=== PATIENT | male | born 1975 | race Caucasian/White ===

== ENCOUNTER 2021-08-08 15:47 | Emergency (ER) | payer OTHER, SELFPAY ==
[2021-08-08 16:54] VITALS: BP 136/103; PULSE 114; RESP 18; TEMP 36.8; O2SAT 99
== END 2021-08-08 17:52 | disposition left against medical advice (07) ==
LOC: ANHED 17:57
PROVIDERS: PCP Internal Medicine
DX: Z53.21 Procedure and treatment not carried out due to patient leaving prior to being seen by health care provider (principal)
CPT/HCPCS: 99199

== ENCOUNTER 2025-01-31 10:56 | Emergency (ER) | payer OTHER, SELFPAY ==
[2025-01-31 11:13] VITALS: BP 163/107; PULSE 84; RESP 16; TEMP 36.7; O2SAT 99
--- NOTE | 2025-01-31 11:36 | ED_ITS ---
HPI - General Adult General Chief complaint: Recheck/Abnormal Lab/Rx Stated complaint: WANTS MEDICINE REFILL Time Seen by Provider: 01/31/25 11:32 Source: patient and RN notes reviewed Mode of arrival: ambulatory Limitations: no limitations History of Present Illness HPI narrative: Patient presents today requesting refill on his atorvastatin, losartan, carvedilol, and amlodipine. He has been out for the last several days. He has tried to schedule appointment with a new PCP in the have canceled on him 3 times. Related Data Home Medications ?Medication ?Instructions ?Recorded ?Confirmed ?Last Taken ?Type amlodipine 10 mg tablet mg 01/31/25 Unknown History atorvastatin 20 mg tablet mg 01/31/25 Unknown History carvedilol 12.5 mg tablet mg 01/31/25 Unknown History losartan 100 mg tablet mg 01/31/25 Unknown History Allergies Allergy/AdvReac Type Severity Reaction Status Date / Time No Known Allergies Allergy Verified 01/31/25 11:23 [facility], [facility] Past Medical History Medical History (Updated 01/31/25 @ 11:42 by Zenia Fernandez, [facility], ) High cholesterol Hypertension Comments At time of signature, I have reviewed and agree with nursing past medical, surgical, social and family history unless otherwise noted. Please see nursing chart for further information. There is no relevant family history pertinent to the presenting complaint Exam Narrative: GENERAL: Well-appearing, well-nourished, and in no acute distress. HEAD: Normocephalic, atraumatic. EYES: EOMI. No redness or drainage. Conjunctivae normal. ENT: Mucous membranes pink and moist. NECK: Normal AROM. CHEST: No respiratory distress. EXTREMITIES: Normal range of motion. No edema. SKIN: Warm, dry, no rash. Capillary refill normal. Normal skin turgor. NEURO: No focal deficits. Alert and oriented x3. Gait steady. PSYCH: Normal affect. No signs of depression or anxiety. Course Course Level of Care: Express Care Visit Vital Signs Vital signs: Vital Signs Temperature 98.1 F 01/31/25 11:13 Pulse Rate 84 01/31/25 11:13 Respiratory Rate 16 01/31/25 11:13 Blood Pressure 163/107 H 01/31/25 11:13 Pulse Oximetry 99 01/31/25 11:13 Temperature 98.1 F 01/31/25 11:13 Pulse Rate 84 01/31/25 11:13 Respiratory Rate 16 01/31/25 11:13 Blood Pressure 163/107 H 01/31/25 11:13 Pulse Oximetry 99 01/31/25 11:13 Reviewed Medical Decision Making MDM Narrative Medical decision making narrative: 49-year-old male patient with history of high blood pressure and cholesterol presents today requesting medication refill. States his work schedule only allo ws him to take off on Fridays and the PCP appointment he had scheduled has canceled on him 3 times. He would like names for other PCPs. Blood pressure is elevated today, but patient has not had his medications today. Differential Diagnosis Differential Diagnosis: Hypertension, high cholesterol, medication refill Vital Signs Vital Signs: Vital Signs Temperature 98.1 F 01/31/25 11:13 Pulse Rate 84 01/31/25 11:13 Respiratory Rate 16 01/31/25 11:13 Blood Pressure 163/107 H 01/31/25 11:13 Pulse Oximetry 99 01/31/25 11:13 Temperature 98.1 F 01/31/25 11:13 Pulse Rate 84 01/31/25 11:13 Respiratory Rate 16 01/31/25 11:13 Blood Pressure 163/107 H 01/31/25 11:13 Pulse Oximetry 99 01/31/25 11:13 Critical Care Time Critical Care Time Critical Care Time: No Discharge Plan Discharge Clinical Impression: Medication refill, Hypertension, High cholesterol Patient Disposition: Home Condition: Stable Additional Instructions: Prescriptions for your medications have been sent to your pharmacy. Please call the physician liaison phone number tomorrow with help to find a new PCP. The phone number is [phone]. Patient Language: Argentine Prescriptions: New atorvastatin [Lipitor] 20 mg tablet 20 mg PO HS Qty: 60 0RF losartan 100 mg tablet 100 mg PO DAILY Qty: 60 0RF carvedilol 12.5 mg tablet 12.5 mg PO BID Qty: 120 0RF Rx Instructions: must administer with a meal/food amlodipine 10 mg tablet 10 mg PO DAILY Qty: 60 0RF No Action atorvastatin 20 mg tablet carvedilol 12.5 mg tablet amlodipine 10 mg tablet losartan 100 mg tablet Follow-up/Referrals: PHYSICIAN,STAFF NURSE MIDWIFE [Primary Care Provider] - Time of Disposition: 11:43
== END 2025-01-31 11:50 | disposition home or self-care (01) ==
PROVIDERS: Emergency Provider Nurse Practitioner
DX: Z76.0 Encounter for issue of repeat prescription (principal); I10 Essential (primary) hypertension; E78.00 Pure hypercholesterolemia, unspecified
CPT/HCPCS: 99211; G0463